=== PATIENT | male | born 1990 | race African-American/Black ===

== ENCOUNTER 2017-05-28 08:27 | Observation (INO) ==
[2017-05-28] MEDS ORDERED: ONDANSETRON 4 MG/2 ML VIAL IV PRN ×3 (08:55→13:28)
[2017-05-28] MEDS ORDERED: HYDROmorphone 2 MG/1 ML VIAL IV PRN ×2 (08:55→13:28)
[2017-05-28] MEDS ORDERED: SODIUM CHLORIDE 0.9% 1,000 ML IV STA (08:55)
--- NOTE | 2017-05-28 09:01 | Emergency Department Note ---
Marcus Rasmussen Brittany, am scribing for, and in the presence of, Wyatt Tam MD 08:57. Anel Rasmussen James D, MD, personally performed the services described in this documentation, ascribed by Lorie Velazquez in my presence, and it is both accurate and complete 858 . Arrival - Arrival Chief Complaint: Nausea/Vomiting/Diarrhea Stated Complaint: throwing up n stomach pains ED Nursing Triage Note: Pt c/o nausea, vomiting, diarrhea, and abd feels tight. Onset last night. Mode of Arrival: Ambulatory Limitations: No Limitations Source: Patient, RN Notes Reviewed - History of Present Illness HPI Narrative: Patient is a 23 y/o black male presenting to the ED with c/o tight abdominal pain which onset last night. He has had one episode of nausea/vomiting. He states that abdominal pain has made vomiting difficult and has anorexia due to severity of pain. Patient denies having any urinary sx's. Similar pain about a year ago that was severe, constant to RLQ, did not desire to get out of bed. He did not seek medical attention at that time. He denies history of appendectomy or cholecystectomy. Patient has a PMHx of ADHD. Current everyday smoker, denies use of Marijuana. He has no other complaint/pain. Onset (ago): hour(s) Consistency: constant Allergies/Adverse Reactions: Allergies Allergy/AdvReac Type Severity Reaction Status Date / Time No Known Allergies Allergy Verified 05/28/17 08:42 Home Medications: Home Medications Medication Instructions Recorded Confirmed Type No Known Home Medications [No 05/28/17 05/28/17 History Known Home Medications] Review of System - Review of System 12 point system: reviewed and no additional remarkable complaints except as stated - Review of System Gastrointestinal: Present: abdominal pain, nausea, vomiting Medical,Surgical,& Family Hx - Medical History Psychological: History of: ADHD - Social History Smoking Status: Current every day smoker Exam Physical Examination: GENERAL: This is an anorexic, well-developed black male in no apparent distress. HEENT: Head is normocephalic and atraumatic. Pupils are equally round and reactive to light. Extraocular movement are intact. Oropharynx is benign with moist mucous membranes. NECK: Neck is soft and supple without tenderness. There are no masses. There is no lymphadenopathy. LUNGS: Lungs are clear to auscultation bilaterally. Chest rises symmetrically. There is no chest wall tenderness. CV: Heart is regular rate and rhythm without murmurs, rubs, or gallops. ABDOMEN: Abdomen is soft, right lower quadrant abdominal tenderness to palpation without rebound or guarding. There are no abnormal masses palpated. There is no organomegaly. Bowel sounds are present and active. Straight leg raise is negative. Heel tap is negative. Psoas sign is negative. SKIN: Skin is warm and dry. No rash. EXTREMITIES: Patient has full range of motion without tenderness. There is no pedal edema. NEUROLOGIC: Awake, alert, and oriented x4. Cranial nerves II through XII are grossly intact. There are no motorsensory deficits. PSYCHIATRIC: Normal affect. Normal mood. Vital Signs: Vital Signs Temperature 98.0 F 05/28/17 08:39 Pulse Rate 67 05/28/17 08:39 Respiratory Rate 16 05/28/17 08:39 Blood Pressure 118/82 05/28/17 08:39 O2 Sat by Pulse Oximetry 99 05/28/17 08:39 Course - Reevaluation(s) Reevaluation #1: Patient will be taken to surgery for exploratory laparoscopy for possible appendicitis. Time: 11:11 - Consultations Consultation #1: Discussed with Dr. Lebron. He will see the patient in the emergency department. Time: 10:34 Results - Labs CBC & BMP: 05/28/17 09:30 05/28/17 09:30 Lab Results: I have reviewed the patients labs Labs: Laboratory Tests 05/28/17 09:17 POC Creatinine 0.64 L POC Estimated GFR (eGFR) > 60 Laboratory Tests 05/28/17 05/28/17 08:55 09:30 WBC 5.4 RBC 5.12 Hgb 14.2 Hct 42.5 MCV 83.0 L Plt Count 171 Urine Color Yellow Urine Appearance Clear Urine pH 6.0 Ur Specific [place] 1.049 H Urine Protein Negative Urine Glucose (UA) Negative Urine Ketones Negative Urine Blood Negative Urine Nitrate Negative Urine Bilirubin Negative Urine Urobilinogen < 2.0 H Urine Leukocytes Negative Urine WBC <1 Urine Mucus Occasional Laboratory Tests 05/28/17 05/28/17 09:30 09:48 Sodium 142 Potassium 4.3 Chloride 106 Carbon Dioxide 29 BUN 10 Creatinine 1.00 Glucose 96 AST 27 ALT 31 Albumin 3.5 Globulin 3.5 Albumin/Globulin Ratio 1.0 L Urine Opiates Screen Negative Ur Barbiturates Screen Negative Ur Phencyclidine Scrn Negative U Amphetamine/Methamph Negative U Benzodiazepines Scrn Positive H U Cocaine Metab Screen Negative U Cannabinoids Screen Positive H - Diagnostic Findings Procedure: Abdominal x-ray: image reviewed by me (Nonspecific gas pattern, no free air, gas in the rectum.), Chest x-ray: image reviewed by me ( Hyperinflation bilaterally without infiltrates.), CT Abdomen and Pelvis: image reviewed by me, report reviewed by me (No obvious evidence of acute appendicitis.) Disposition Clinical Impression: Right lower quadrant abdominal pain, Nausea Case discussed with: patient Condition: Stable
[2017-05-28] MEDS ORDERED: ONDANSETRON 4 MG/2 ML VIAL ONE ×3 (09:18→13:26)
[2017-05-28] MEDS ORDERED: HYDROmorphone 2 MG/1 ML VIAL ONE ×2 (09:18→13:18)
--- NOTE | 2017-05-28 09:38 | CT Report ---
CT of the abdomen and pelvis with intravenous contrast. Oral contrast was not administered. Axial images were obtained with sagittal and coronal reconstructions. 100 cc Omni 350. Indication: Generalized abdominal pain. No previous study. The heart is normal in size. The lung bases are clear. The liver is borderline prominent in size. There is no splenic enlargement. There is no adrenal enlargement. There is no pancreatic enlargement. The abdominal aorta is of normal caliber. There is a small amount of free fluid in the pelvis. The loops of bowel are not dilated. Portions of the appendix are visible and appear normal. No definite inflammatory change in the right lower quadrant. No colonic the dilatation. No bony abnormality. Impression: Small amount of nonspecific free fluid in the pelvis. The appendix is not seen in its entirety. No definite findings of inflammation in the right lower quadrant. The CT exam was performed using one or more of the following dose reduction techniques: Automated exposure control, adjustment of the mA and/or kV according to patient size, or use of iterative reconstruction technique. PROCEDURE INTERPRETED AT [facility] DEPARTMENT OF RADIOLOGY Final Report Signed by: Dr. Leatha Reed
--- NOTE | 2017-05-28 09:39 | XRay Report ---
2 view abdomen. Indication: Abdominal pain. The heart is normal in size. The lung bases are clear. Contrast material is seen within the renal collecting systems and urinary bladder, following CT. The urinary tract appears normal. The bowel gas pattern is normal. No free air. No organomegaly. Normal osseous structures. Impression: No abnormality is seen. PROCEDURE INTERPRETED AT [facility] DEPARTMENT OF RADIOLOGY Final Report Signed by: Dr. Leatha Reed
--- NOTE | 2017-05-28 09:40 | XRay Report ---
Portable chest. Indication: Pain of the chest and abdomen. The heart and mediastinal contours are unremarkable. The pulmonary vasculature is normal. There is no consolidation, pneumothorax, or pleural effusion. The osseous structures are unremarkable. Impression: No abnormality is seen. PROCEDURE INTERPRETED AT [facility] DEPARTMENT OF RADIOLOGY Final Report Signed by: Dr. Leatha Reed
[2017-05-28 09:43] LABS: Basophils % 0.6 % (0.0-0.8); Eosinophils # 0.2 10*3/uL (0.0-0.87); Eosinophils % 3.9 % (0.00-10.9); Hematocrit 42.5 VOL% (42.0-52.0); Hemoglobin 14.2 GM/DL (14.0-18.0); Immature Granulocytes % 0.2 %; Immature Granulocytes Absolute 0.01 #; Lymphocytes # 2.6 10*3/uL (1.4-4.0); Lymphocytes % 48.4 % (21.2-54.2); Mean Corpuscular HGB Conc 33.4 GM/DL (32-36); Mean Corpuscular Hemoglobin 28 PG (27-34); Mean Platelet Volume 10.5 FL (9.6-12.0); Monocytes # 0.4 10*3/uL (0.11-0.8); Monocytes % 6.9 % (1.7-12.7); Neutrophils # 2.1 10*3/uL (1.4-7.4); Platelet Count 171 T/CUMM (130-400); Red Blood Count 5.12 MC/CUMM (3.8-5.5); Red Cell Distribution Width 14.1 % (9.3-17.3); White Blood Count 5.4 T/CUMM (4-12)
[2017-05-28 09:53] LABS: Apearance,Urine CLEAR (Clear); Bilirubin,Urine Negative (Negative); Blood, Urine Negative (Negative); Glucose,Urine (UA) Negative (Negative); Ketones,Urine Negative (Negative); Mucus,Urine Occasional /LPF (Occasional); Nitrite,Urine Negative (Negative); Protein,Urine Negative; Urine Color Yellow (Yellow); Urine Specific Gravity 1.049 (1.001-1.035); Urine Urobilinogen < 2.0 EU/DL (0.2-1.0); WBC,Urine <1 /HPF (0-6)
[2017-05-28 10:10] LABS: Albumin 3.5 G/DL (3.4-5.0); Bilirubin,Total 0.5 MG/DL (0.2-1.0); Calcium 8.8 MG/DL (8.5-10.1); Osmolality,Calculated 281.1 MOS/KG (273-304); Potassium 4.3 MMOL/L (3.5-5.1)
[2017-05-28 10:19] LABS: Barbiturates Screen,Urine Negative (Negative); Benzodiazepines Screen,Urine Positive (Negative); Cannabinoid Screen,Urine Positive (Negative); Opiate Screen,Urine Negative (Negative); Phencyclidine Screen,Urine Negative (Negative)
[2017-05-28] MEDS ORDERED: AMPICILLIN/SULBACTAM 3,000 MG in SODIUM CHLORIDE 0.9% 100 ML IV STA (11:11)
[2017-05-28] MEDS ORDERED: FAMOTIDINE 20 MG/2 ML VIAL IV STA (11:11)
[2017-05-28] MEDS ORDERED: BUPIVACAINE 0.25% /EPI 10 ML VIAL ONE (11:12)
[2017-05-28] MEDS ORDERED: LIDOCAINE 1%/EPI INJ 20 ML VIAL ONE (11:12)
[2017-05-28] MEDS ORDERED: AMPICILLIN/SULBACTAM 3,000 MG VIAL ONE (11:17)
[2017-05-28] MEDS ORDERED: FAMOTIDINE 20 MG/2 ML VIAL IV ONE (11:18)
--- NOTE | 2017-05-28 11:38 | General Surg History&Physical ---
Assessment and Plan (1) Right lower quadrant abdominal pain Status: Acute Assessment and plan: Impression: Right lower quadrant pain Plan: CT scan reviewed. There is a small amount of free fluid in the pelvis. This is abnormal in a male patient. Portion of the appendix was identified and that portion appeared normal. Lab work looks normal. I suspect he may have early appendicitis. I discussed options with the patient including admission and observation versus proceeding with diagnostic laparoscopy and appendectomy. He would like to proceed with appendectomy as soon as possible. I discussed the procedure house performed and anticipated recovery. The risks of the procedure including bleeding, infection, damage to surrounding structures, need for further surgery, leaking at the staple line were all discussed in detail and he would like to proceed. Current Visit: Yes History of Present Illness Chief complaint: Right lower quadrant abdominal pain History of present illness: Mr. Wesley is a 26 year old male who presents with 1 day history of right lower quadrant abdominal pain. Sharp in nature. Progressively worsening. Pain is constant. It began slightly more medially in the right lower quadrant and has migrated more laterally. He had nausea and vomiting. Denies fever. Denies any medical problems. Denies chest pain shortness of breath. Home Medications Medication Instructions Recorded Confirmed Type No Known Home Medications [No 05/28/17 05/28/17 History Known Home Medications] Allergies Allergy/AdvReac Type Severity Reaction Status Date / Time No Known Allergies Allergy Verified 05/28/17 08:42 Medical,Surgical,& Family Hx - Medical History Medical History: noncontributory Psychological: History of: ADHD - Surgical History Surgical History: noncontributory - Family History Family History: noncontributory - Social History Smoking Status: Current every day smoker Exam - Constitutional Vitals: Period Temp Pulse Resp BP Sys/Kolb Pulse Ox Last 24 Hr 98.0 F 67 16 118/82 99 General appearance: no acute distress - Head Head exam: Present: normocephalic - ENT Mouth exam: Present: normal external inspection - Neck Neck exam: Present: normal inspection - Respiratory Respiratory exam: Present: clear to auscultation bilaterally - Cardiovascular Cardiovascular exam: Present: RRR - GI/Abdominal GI/Abdominal exam: Present: soft (Very tender to palpation in the right lower quadrant with localized rebound. Positive Rovsing sign.) - Extremities Exam Extremities exam: Present: normal inspection - Back Exam Back exam: Present: normal inspection - Neurological Exam Neurological exam: Present: alert, oriented X3 Speech: Present: normal - Skin Skin exam: Present: normal color 12 point system: reviewed and no additional remarkable complaints except as stated Results - Labs CBC & BMP: 05/28/17 09:30 05/28/17 09:30 Lab Results: I have reviewed the past 24 hour labs
[2017-05-28] MEDS ORDERED: TISSUE ADHESIVE 1 EACH APPLICATOR TOP ONE (12:37)
[2017-05-28] MEDS ORDERED: SUGAMMADEX 200 MG/2 ML VIAL IV ONE (13:02)
--- NOTE | 2017-05-28 13:21 | Anesthesia Post-Op ---
Anesthesia Post OP - Post Ansesthetic Evaluation Patient seen in post op: Yes Resp: within normal limits CV: within normal limits Mental: within normal limits Temp: within normal limits [id number]: within normal limits Nausea and Vomiting: within normal limits Pain: within normal limits
[2017-05-28] MEDS ORDERED: MORPHINE 2 MG/1 ML SYRINGE IV PRN (13:24)
[2017-05-28] MEDS ORDERED: ACETAMINOPHEN 325 MG TABLET PO PRN (13:24)
[2017-05-28] MEDS ORDERED: fentaNYL 100 MCG/2 ML VIAL ONE (13:26)
[2017-05-28] MEDS ORDERED: MIDAZOLAM 2 MG/2 ML VIAL ONE (13:26)
[2017-05-28] MEDS ORDERED: PROPOFOL 200 MG/20 ML VIAL IV ONE (13:26)
[2017-05-28] MEDS ORDERED: DEXAMETHASONE 10 MG/1 ML VIAL ONE (13:26)
[2017-05-28] MEDS ORDERED: SUCCINYLCHOLINE 200 MG/10 ML VIAL ONE (13:27)
[2017-05-28] MEDS ORDERED: KETOROLAC 30 MG/1 ML VIAL ONE (13:27)
[2017-05-28] MEDS ORDERED: GLYCOPYRROLATE 0.4 MG/2 ML VIAL ONE (13:27)
[2017-05-28] MEDS ORDERED: LACTATED RINGERS 1,000 ML IV ONE (13:27)
[2017-05-28] MEDS ORDERED: ROCURONIUM 100 MG/10 ML VIAL IV ONE (13:27)
[2017-05-28] MEDS ORDERED: NEOSTIGMINE 10 MG/10 ML VIAL ONE (13:27)
[2017-05-28] MEDS ORDERED: LACTATED RINGERS 1,000 ML IV SCH (13:30)
--- NOTE | 2017-05-28 13:31 | Operative Note ---
Date of procedure: 05/28/17 Pre-op diagnosis: Right lower quadrant abdominal pain Post-op diagnosis: same (Same with hyperemic tip of the appendix) Procedure: Procedure performed: Diagnostic laparoscopy with laparoscopic appendectomy Procedure in detail: After informed consent was obtained, patient was taken the operating suite and laid supine on the operating table. After general anesthesia was induced Boateng catheter placed and abdomen was prepped and draped in usual sterile fashion. After procedural pause local anesthetic infiltrated skin and subcutaneous tissue above the umbilicus. Incision was made and dissection carried down through skin and soft tissue. Fascia was grasped with Wilfredo's and elevated fascial incision was made in the abdominal cavity was entered bluntly. Finger sweep revealed no adhesions. Masterson trocar placed under direct visualization. Pneumoperitoneum achieved. Camera inserted bowel mesentery inspected found to be free of any violation. Patient was placed in Trendelenburg position rotated to the left. 2 5 mm trochars were placed in the suprapubic and left lower quadrant under visualization. Can remove to the left lower quadrant. In the right lower quadrant a normal sized appendix was present. The distal third of the appendix appeared hyperemic compared to the more proximal portion. it was nonsuppurative. The colon and small bowel were evaluated. There was no Meckel's hernia. There is no obvious pathology identified. There was some yellowish tinged fluid in the pelvis which was suctioned. Approximately 15-20 cc. There were 2 very small left inguinal hernias present, a direct and indirect. Each was less than half a centimeter in diameter. Bladder appeared normal. Retroperitoneum liver stomach gallbladder all appeared normal. The appendix was grasped and elevated. A window was created at the base of the appendix and the mesentery. The appendiceal base transected using a INEZ stapling device with vascular load. Mesoappendix transected in same fashion. Appendix placed in Endo Catch sac removed to the Masterson trocar site. Pneumoperitoneum reachieved. Right lower quadrant thoroughly irrigated and suctioned. The irrigant remained clear was all suctioned. Staple lines inspected and found to be intact no leakage of sanguinous or succus-appearing fluid. The trochars were removed his abdomen desufflated. Fascia at the Masterson trocar site closed using 0 Vicryl figure-of- eight interrupted suture. Wounds thoroughly irrigated and suctioned the deep dermal layer closed with 3-0 Vicryl. 4-0 Monocryl used to close skin. Sterile dressings applied. Patient explained taken recovery room in stable condition. All lap and needle counts correct at the end of the case. Anesthesia: GETA Surgeon / Physician: Mati Lebron Estimated blood loss: other (Less than 10 cc) Specimens: other (Appendix) Condition: stable Disposition: PACU Results - Labs CBC & BMP: 05/28/17 09:30 05/28/17 09:30 Discharge Plan - Discharge Medications No Action No Known Home Medications [No Known Home Medications] - Follow Up or Referral - Forms/Instructions
[2017-05-28 15:59] VITALS: BP 100/55
--- NOTE | 2017-05-28 16:04 | Discharge Summary ---
Hospital Course - Hospital Course Hospital Course: Mr. Wesley is a 26-year-old -[place] male with no prior medical history admitted by Dr. Lebron through the emergency room with right lower quadrant abdominal pain. CT scan showed free fluid in the pelvis and suspect appendicitis. He was taken to the operating room on 05/28/[address] Lebron performed a diagnostic laparoscopy with laparoscopic appendectomy. He did find a hyperemic tip of the appendix and felt this was an early appendicitis. Patient is doing very well postoperatively. He is awake and alert ambulating in the room. He is eating without nausea and his previous pain has resolved. He will be discharged home with a 2 week follow-up with Dr. Lebron. Complete discharge instructions were given to the patient and the family in the room. - Time spent with patient Time with patient DS: Less than 30 minutes Diagnosis - Discharge Diagnosis (1) Status post appendectomy Status: Resolved (2) Right lower quadrant abdominal pain Status: Resolved (3) Nausea Status: Resolved Discharge Plan - Discharge Data Disposition: Disch To Home/Self Care Condition at Discharge: Stable Discharge Diet: advance to your usual diet Activity: no lifting Hygiene: may shower Driving: other (No driving if taking pain medicine) Contact your physician if you experience:: fever over 101, Redness or swelling, Nausea/Vomiting Wound / Dressing Care Instructions: He has surgical glue on incisions. It is okay to shower with mild soap and water and pat these areas dry. Do not pick glue off they will come off on their own in about a week. It is okay to leave open to the air. - Discharge Medications New HYDROcodone/ACETAMIN 7.5-325 [Craig 7.5-325] 1 - 2 tablet PO Q4H PRN #30 tablet PRN Reason: Pain Moderate (4-7) - Follow Up or Referral Follow Up: Mati Lebron MD [Physician] - 2 Weeks - Forms/Instructions Forms: Acute Care Work/School Release Exam - Constitutional Vitals: Period Temp Pulse Resp BP Sys/Kolb Pulse Ox Last 24 Hr 96.9 F-98.0 F 52-90 14-19 100-127/55-87 96-100 Exam: 26-year-old -[place] male, no acute distress, alert and oriented Chest clear CV regular rate and rhythm Abdomen soft and nontender, incisions look good Extremities no edema Discharge Results Labs on day of discharge: Labs from last 24 hours 05/28/17 05/28/17 05/28/17 09:48 09:30 09:30 WBC 5.4 RBC 5.12 Hgb 14.2 Hct 42.5 MCV 83.0 L MCH 28 MCHC 33.4 RDW 14.1 Plt Count 171 MPV 10.5 Neut % (Auto) 40.0 Lymph % (Auto) 48.4 [place] % (Auto) 6.9 Eos % (Auto) 3.9 Baso % (Auto) 0.6 Neut # (Auto) 2.1 Lymph # (Auto) 2.6 [place] # (Auto) 0.4 Eos # (Auto) 0.2 Baso # (Auto) 0.0 Immature Gran % 0.2 Nucleated RBC % 0.0 Immature Gran # 0.01 Nucleated RBCs # 0.00 Sodium 142 Potassium 4.3 Chloride 106 Carbon Dioxide 29 Anion Gap 11.3 BUN 10 Creatinine 1.00 POC Creatinine GFR Calculation 123 POC Estimated GFR (eGFR) BUN/Creatinine Ratio 10.00 Glucose 96 Calculated Osmolality 281.1 Calcium 8.8 Total Bilirubin 0.50 AST 27 ALT 31 Alkaline Phosphatase 65 Total Protein 7.0 Albumin 3.5 Globulin 3.5 Albumin/Globulin Ratio 1.0 L Lipase 156.0 Urine Color Urine Appearance Urine pH Ur Specific [place] Urine Protein Urine Glucose (UA) Urine Ketones Urine Blood Urine Nitrate Urine Bilirubin Urine Urobilinogen Urine Leukocytes Urine WBC Urine Mucus Ur Culture Indicated? Urine Opiates Screen Negative Ur Barbiturates Screen Negative Ur Phencyclidine Scrn Negative U Amphetamine/Methamph Negative U Benzodiazepines Scrn Positive H U Cocaine Metab Screen Negative U Cannabinoids Screen Positive H 05/28/17 05/28/17 09:17 08:55 WBC RBC Hgb Hct MCV MCH MCHC RDW Plt Count MPV Neut % (Auto) Lymph % (Auto) [place] % (Auto) Eos % (Auto) Baso % (Auto) Neut # (Auto) Lymph # (Auto) [place] # (Auto) Eos # (Auto) Baso # (Auto) Immature Gran % Nucleated RBC % Immature Gran # Nucleated RBCs # Sodium Potassium Chloride Carbon Dioxide Anion Gap BUN Creatinine POC Creatinine 0.64 L GFR Calculation POC Estimated GFR (eGFR) > 60 BUN/Creatinine Ratio Glucose Calculated Osmolality Calcium Total Bilirubin AST ALT Alkaline Phosphatase Total Protein Albumin Globulin Albumin/Globulin Ratio Lipase Urine Color Yellow Urine Appearance Clear Urine pH 6.0 Ur Specific [place] 1.049 H Urine Protein Negative Urine Glucose (UA) Negative Urine Ketones Negative Urine Blood Negative Urine Nitrate Negative Urine Bilirubin Negative Urine Urobilinogen < 2.0 H Urine Leukocytes Negative Urine WBC <1 Urine Mucus Occasional Ur Culture Indicated? Not indicated Urine Opiates Screen Ur Barbiturates Screen Ur Phencyclidine Scrn U Amphetamine/Methamph U Benzodiazepines Scrn U Cocaine Metab Screen U Cannabinoids Screen DS: Provider Date of admission: 05/28/17 11:26 Primary care physician: . No PCP Attending physician on admission: Mati Lebron MD Discharging clinician: MAUDE Mart Expected date of discharge: 05/28/17
[2017-05-29] MEDS ORDERED: PANTOPRAZOLE 40 MG TABLET PO SCH (09:00)
--- NOTE | 2017-05-31 12:21 | Pathology Report from [facility] ---
[facility] [place] ACCESSION # : [id number] PATIENT NAME : Danny Wesley ORDERING DR : Mati Lebron MD CLINICAL HX: Acute appendicitis POST-OP DX: Same SPECIMEN INFO: Appendix GROSS DESCRIPTION: The specimen is received in formalin labeled with the patients name and consists of an appendix measuring 6.3 x 0.7 cm. The serosa is red-razo with adhesions noted. The lumen is patent containing fragments of soft fecal material with no fecaliths or perforations seen. Wet Machine Tender sections submitted in one cassette. DIAGNOSIS FOR DANNY WESLEY: APPENDIX, APPENDECTOMY: Non-acute appendix with chronic inflammation, serosal fibrous adhesions and congestion. COLLECTED DATE: 05/28/2017 [facility] REPORT DATE: 05/31/2017 ELECTRONICALLY SIGNED BY: Curly Hugo M.D. 05/31/2017 - 10:08:12 STACY
== END 2017-05-28 17:10 | disposition home or self-care (01) ==
LOC: N.EDINP 08:27 → N.ED 08:27 → N.EDINP 12:00 → N.4E 14:09
PROVIDERS: ADMIT Surgery; ATTEND Surgery